=== PATIENT | male | born 1940 | race Caucasian/White ===

== ENCOUNTER 2017-12-11 10:15 | Day surgery (SDC) | payer MEDICARE, BC ==
[2017-12-11] MEDS ORDERED: METF500T PO (11:31)
[2017-12-11] MEDS ORDERED: DILT300C34 PO (11:33)
[2017-12-11] MEDS ORDERED: ATOR40TA PO (11:33)
[2017-12-11] MEDS ORDERED: OCUVITE PO (11:34)
[2017-12-11] MEDS ORDERED: MULT-38 PO (11:34)
[2017-12-11] MEDS ORDERED: OMEP40CA37 PO (11:34)
[2017-12-11] MEDS ORDERED: ASPI-1265 PO (11:35)
[2017-12-11] MEDS ORDERED: UBID50TA3 PO (11:35)
== END 2017-12-11 11:19 | disposition home or self-care (01) ==
LOC: WOUND CARE 10:15
PROVIDERS: ATTEND Surgery
DX: T81.31XA Disruption of external operation (surgical) wound, not elsewhere classified, initial encounter (principal); E11.622 Type 2 diabetes mellitus with other skin ulcer; L97.312 Non-pressure chronic ulcer of right ankle with fat layer exposed; E78.5 Hyperlipidemia, unspecified; I10 Essential (primary) hypertension; Z96.662 Presence of left artificial ankle joint; Z96.661 Presence of right artificial ankle joint; Y83.8 Other surgical procedures as the cause of abnormal reaction of the patient, or of later complication, without mention of misadventure at the time of the procedure
CPT/HCPCS: 11042; 36416; 82948; 99205; A6021; A6206; A6209; A6446

== ENCOUNTER 2017-12-15 10:14 | Day surgery (SDC) | payer MEDICARE, BC ==
[~2017-12-15 10:14] MED LIST: ASPI-1265 PO; ATOR40TA PO; DILT300C34 PO; METF500T PO; MULT-38 PO; OCUVITE PO; OMEP40CA37 PO; UBID50TA3 PO
[2017-12-15] MEDS ORDERED: LIDOcaine 2% 5ml jelly ONE (11:39)
== END 2017-12-15 12:31 | disposition home or self-care (01) ==
LOC: WOUND CARE 10:14
PROVIDERS: ATTEND Surgery
DX: T81.31XD Disruption of external operation (surgical) wound, not elsewhere classified, subsequent encounter (principal); E11.622 Type 2 diabetes mellitus with other skin ulcer; L97.312 Non-pressure chronic ulcer of right ankle with fat layer exposed; E78.5 Hyperlipidemia, unspecified; I10 Essential (primary) hypertension; Y83.8 Other surgical procedures as the cause of abnormal reaction of the patient, or of later complication, without mention of misadventure at the time of the procedure
CPT/HCPCS: 36416; 82948; A6209; A6222; A6446; C5271; Q4102

== ENCOUNTER 2017-12-24 08:07 | Day surgery (SDC) | payer MEDICARE, BC ==
[2017-12-24] MEDS ORDERED: LIDOcaine 2% 5ml jelly ONE (09:08)
== END 2017-12-24 09:44 | disposition home or self-care (01) ==
LOC: WOUND CARE 08:07
PROVIDERS: ATTEND Surgery
DX: T81.31XD Disruption of external operation (surgical) wound, not elsewhere classified, subsequent encounter (principal); E11.622 Type 2 diabetes mellitus with other skin ulcer; L97.312 Non-pressure chronic ulcer of right ankle with fat layer exposed; E78.5 Hyperlipidemia, unspecified; I10 Essential (primary) hypertension; Z96.662 Presence of left artificial ankle joint; Z96.661 Presence of right artificial ankle joint; Y83.8 Other surgical procedures as the cause of abnormal reaction of the patient, or of later complication, without mention of misadventure at the time of the procedure
CPT/HCPCS: 15271; 82948; A6209; A6446; Q4131; A6250

== ENCOUNTER 2017-12-30 08:09 | Day surgery (SDC) | payer MEDICARE, BC ==
[2017-12-30] MEDS ORDERED: LIDOcaine 2% 5ml jelly ONE (09:46)
== END 2017-12-30 11:01 | disposition home or self-care (01) ==
LOC: WOUND CARE 08:09
PROVIDERS: ATTEND Surgery
DX: T81.31XD Disruption of external operation (surgical) wound, not elsewhere classified, subsequent encounter (principal); E11.622 Type 2 diabetes mellitus with other skin ulcer; L97.312 Non-pressure chronic ulcer of right ankle with fat layer exposed; E78.5 Hyperlipidemia, unspecified; I10 Essential (primary) hypertension; Z96.662 Presence of left artificial ankle joint; Z96.661 Presence of right artificial ankle joint; Y83.8 Other surgical procedures as the cause of abnormal reaction of the patient, or of later complication, without mention of misadventure at the time of the procedure
CPT/HCPCS: 15271; 36416; 82948; A6209; A6222; Q4133; A6250

== ENCOUNTER 2018-01-06 08:17 | Day surgery (SDC) | payer MEDICARE, BC ==
[2018-01-06] MEDS ORDERED: LIDOcaine 2% 5ml jelly ONE (09:20)
== END 2018-01-06 10:10 | disposition home or self-care (01) ==
LOC: WOUND CARE 08:17
PROVIDERS: ATTEND Surgery
DX: T81.31XD Disruption of external operation (surgical) wound, not elsewhere classified, subsequent encounter (principal); E11.622 Type 2 diabetes mellitus with other skin ulcer; L97.312 Non-pressure chronic ulcer of right ankle with fat layer exposed; E78.5 Hyperlipidemia, unspecified; I10 Essential (primary) hypertension; Z96.662 Presence of left artificial ankle joint; Z96.661 Presence of right artificial ankle joint; Y83.8 Other surgical procedures as the cause of abnormal reaction of the patient, or of later complication, without mention of misadventure at the time of the procedure
CPT/HCPCS: 11043; 36416; 82948; A6021; A6206; A6209; A6446

== ENCOUNTER 2018-01-13 08:15 | Day surgery (SDC) | payer MEDICARE, BC ==
[2018-01-13] MEDS ORDERED: LIDOcaine 2% 5ml jelly ONE (09:57)
== END 2018-01-13 10:42 | disposition home or self-care (01) ==
LOC: WOUND CARE 08:15
PROVIDERS: ATTEND Surgery
DX: T81.31XD Disruption of external operation (surgical) wound, not elsewhere classified, subsequent encounter (principal); E11.622 Type 2 diabetes mellitus with other skin ulcer; L97.312 Non-pressure chronic ulcer of right ankle with fat layer exposed; E78.5 Hyperlipidemia, unspecified; I10 Essential (primary) hypertension; Z96.662 Presence of left artificial ankle joint; Z96.661 Presence of right artificial ankle joint; Y83.8 Other surgical procedures as the cause of abnormal reaction of the patient, or of later complication, without mention of misadventure at the time of the procedure
CPT/HCPCS: 15271; 36416; 82948; A6209; A6222; Q4131; A6250

== ENCOUNTER 2018-01-20 08:28 | Outpatient (CLI) | payer MEDICARE, BC ==
[2018-01-20] MEDS: LIDOcaine 2% 5ml jelly ONE (09:50)
== END 2018-01-20 10:40 | disposition home or self-care (01) ==
LOC: WOUND CARE 08:28 → EDSTATUS 08:30 → WOUND CARE 10:40
PROVIDERS: ATTEND Surgery
DX: T81.31XD Disruption of external operation (surgical) wound, not elsewhere classified, subsequent encounter (principal); E11.622 Type 2 diabetes mellitus with other skin ulcer; L97.312 Non-pressure chronic ulcer of right ankle with fat layer exposed; E78.5 Hyperlipidemia, unspecified; I10 Essential (primary) hypertension; Z96.662 Presence of left artificial ankle joint; Z96.661 Presence of right artificial ankle joint; Y83.8 Other surgical procedures as the cause of abnormal reaction of the patient, or of later complication, without mention of misadventure at the time of the procedure
CPT/HCPCS: 36416; 82948; 99214; A6206; A6209; A6446

== ENCOUNTER 2018-01-27 08:30 | Day surgery (SDC) | payer MEDICARE, BC ==
[2018-01-27] MEDS ORDERED: LIDOcaine 2% 5ml jelly ONE (09:37)
== END 2018-01-27 10:20 | disposition home or self-care (01) ==
LOC: WOUND CARE 08:30
PROVIDERS: ATTEND Surgery
DX: E11.622 Type 2 diabetes mellitus with other skin ulcer (principal); L97.312 Non-pressure chronic ulcer of right ankle with fat layer exposed
CPT/HCPCS: 15271; A6209; A6446; Q4131; A6250

== ENCOUNTER 2018-02-03 08:41 | Day surgery (SDC) | payer MEDICARE, BC ==
[2018-02-03] MEDS ORDERED: LIDOcaine 2% 5ml jelly ONE (09:07)
== END 2018-02-03 09:30 | disposition home or self-care (01) ==
LOC: WOUND CARE 08:41
PROVIDERS: ATTEND Surgery
DX: T81.31XD Disruption of external operation (surgical) wound, not elsewhere classified, subsequent encounter (principal); E11.622 Type 2 diabetes mellitus with other skin ulcer; L97.312 Non-pressure chronic ulcer of right ankle with fat layer exposed; E78.5 Hyperlipidemia, unspecified; I10 Essential (primary) hypertension; Z96.662 Presence of left artificial ankle joint; Z96.661 Presence of right artificial ankle joint; Y83.8 Other surgical procedures as the cause of abnormal reaction of the patient, or of later complication, without mention of misadventure at the time of the procedure
CPT/HCPCS: 82948; 99215; A6209; A6222; A6446

== ENCOUNTER 2018-02-10 08:15 | Day surgery (SDC) | payer MEDICARE, BC ==
[2018-02-10] MEDS ORDERED: LIDOcaine/PRILOcaine 5gm cream TP ONE (09:33)
== END 2018-02-10 10:10 | disposition home or self-care (01) ==
LOC: WOUND CARE 08:15
PROVIDERS: ATTEND Surgery
DX: T81.31XD Disruption of external operation (surgical) wound, not elsewhere classified, subsequent encounter (principal); E11.622 Type 2 diabetes mellitus with other skin ulcer; L97.312 Non-pressure chronic ulcer of right ankle with fat layer exposed; E78.5 Hyperlipidemia, unspecified; I10 Essential (primary) hypertension; Z96.662 Presence of left artificial ankle joint; Z96.661 Presence of right artificial ankle joint; Y83.8 Other surgical procedures as the cause of abnormal reaction of the patient, or of later complication, without mention of misadventure at the time of the procedure
CPT/HCPCS: 15271; 36416; 82948; A6209; A6222; A6446; Q4131; A6250

== ENCOUNTER 2018-02-24 08:20 | Day surgery (SDC) | payer MEDICARE, BC | END 2018-02-24 10:03 | disposition home or self-care (01) | LOC: WOUND CARE 08:20 | PROVIDERS: ATTEND Surgery | DX: T81.31XD Disruption of external operation (surgical) wound, not elsewhere classified, subsequent encounter (principal); E11.622 Type 2 diabetes mellitus with other skin ulcer; L97.312 Non-pressure chronic ulcer of right ankle with fat layer exposed; E78.5 Hyperlipidemia, unspecified; I10 Essential (primary) hypertension; Z96.662 Presence of left artificial ankle joint; Z96.661 Presence of right artificial ankle joint; Y83.8 Other surgical procedures as the cause of abnormal reaction of the patient, or of later complication, without mention of misadventure at the time of the procedure | CPT/HCPCS: 15271; 36416; 82948; A6209; A6222; A6446; Q4131; A6250 ==

== ENCOUNTER 2018-03-03 08:00 | Outpatient (CLI) | payer MEDICARE, BC ==
[2018-03-03] MEDS ORDERED: LIDOcaine/PRILOcaine 5gm cream TP ONE (09:24)
== END 2018-03-03 09:50 | disposition home or self-care (01) ==
LOC: WOUND CARE 08:00 → EDSTATUS 08:30 → WOUND CARE 09:50
PROVIDERS: ATTEND Surgery
DX: T81.31XD Disruption of external operation (surgical) wound, not elsewhere classified, subsequent encounter (principal); E11.622 Type 2 diabetes mellitus with other skin ulcer; L97.312 Non-pressure chronic ulcer of right ankle with fat layer exposed; E78.5 Hyperlipidemia, unspecified; I10 Essential (primary) hypertension; Z96.662 Presence of left artificial ankle joint; Z96.661 Presence of right artificial ankle joint; Y83.8 Other surgical procedures as the cause of abnormal reaction of the patient, or of later complication, without mention of misadventure at the time of the procedure
CPT/HCPCS: 36416; 82948; 99215; A6206; A6209; A6212

== ENCOUNTER 2018-03-08 08:05 | Day surgery (SDC) | payer MEDICARE, BC ==
[2018-03-08] MEDS ORDERED: LIDOcaine/PRILOcaine 5gm cream TP ONE (09:42)
== END 2018-03-08 10:22 | disposition home or self-care (01) ==
LOC: WOUND CARE 08:05
PROVIDERS: ATTEND Surgery
DX: T81.31XD Disruption of external operation (surgical) wound, not elsewhere classified, subsequent encounter (principal); E11.622 Type 2 diabetes mellitus with other skin ulcer; L97.312 Non-pressure chronic ulcer of right ankle with fat layer exposed; E78.5 Hyperlipidemia, unspecified; I10 Essential (primary) hypertension; Z96.662 Presence of left artificial ankle joint; Z96.661 Presence of right artificial ankle joint; Y83.8 Other surgical procedures as the cause of abnormal reaction of the patient, or of later complication, without mention of misadventure at the time of the procedure
CPT/HCPCS: 15271; 36416; 82948; A6209; A6222; A6446; Q4131; A6250

== ENCOUNTER 2018-03-17 08:05 | Outpatient (CLI) | payer MEDICARE, BC ==
[2018-03-17] MEDS ORDERED: LIDOcaine/PRILOcaine 5gm cream TP ONE (09:38)
== END 2018-03-17 10:12 | disposition home or self-care (01) ==
LOC: WOUND CARE 08:05
PROVIDERS: ATTEND Surgery
DX: T81.31XD Disruption of external operation (surgical) wound, not elsewhere classified, subsequent encounter (principal); E11.622 Type 2 diabetes mellitus with other skin ulcer; L97.312 Non-pressure chronic ulcer of right ankle with fat layer exposed; E78.5 Hyperlipidemia, unspecified; I10 Essential (primary) hypertension; Z96.662 Presence of left artificial ankle joint; Z96.661 Presence of right artificial ankle joint; Y83.8 Other surgical procedures as the cause of abnormal reaction of the patient, or of later complication, without mention of misadventure at the time of the procedure
CPT/HCPCS: 36416; 82948; 99215; A6212; A6222

== ENCOUNTER 2018-03-24 09:39 | Day surgery (SDC) | payer MEDICARE, BC ==
[2018-03-24] MEDS ORDERED: LIDOcaine/PRILOcaine 5gm cream TP ONE (10:04)
== END 2018-03-24 10:54 | disposition home or self-care (01) ==
LOC: WOUND CARE 09:39
PROVIDERS: ATTEND Surgery
DX: T81.31XD Disruption of external operation (surgical) wound, not elsewhere classified, subsequent encounter (principal); E11.622 Type 2 diabetes mellitus with other skin ulcer; L97.312 Non-pressure chronic ulcer of right ankle with fat layer exposed; E78.5 Hyperlipidemia, unspecified; I10 Essential (primary) hypertension; Z96.662 Presence of left artificial ankle joint; Z96.661 Presence of right artificial ankle joint; Y83.8 Other surgical procedures as the cause of abnormal reaction of the patient, or of later complication, without mention of misadventure at the time of the procedure
CPT/HCPCS: 15271; 36416; 82948; A6209; A6222; Q4133; A6250

== ENCOUNTER 2018-03-31 09:42 | Day surgery (SDC) | payer MEDICARE, BC ==
[2018-03-31] MEDS ORDERED: LIDOcaine/PRILOcaine 5gm cream TP ONE (10:02)
== END 2018-03-31 10:28 | disposition home or self-care (01) ==
LOC: WOUND CARE 09:42
PROVIDERS: ATTEND Surgery
DX: T81.31XD Disruption of external operation (surgical) wound, not elsewhere classified, subsequent encounter (principal); E11.622 Type 2 diabetes mellitus with other skin ulcer; L97.312 Non-pressure chronic ulcer of right ankle with fat layer exposed; E78.5 Hyperlipidemia, unspecified; I10 Essential (primary) hypertension; Z96.662 Presence of left artificial ankle joint; Z96.661 Presence of right artificial ankle joint; Y83.8 Other surgical procedures as the cause of abnormal reaction of the patient, or of later complication, without mention of misadventure at the time of the procedure
CPT/HCPCS: 15271; 36416; 82948; A6209; A6212; A6222; Q4133; A6250

== ENCOUNTER 2018-04-07 09:28 | Day surgery (SDC) | payer MEDICARE, BC ==
[2018-04-07] MEDS ORDERED: LIDOcaine/PRILOcaine 5gm cream TP ONE (09:53)
== END 2018-04-07 11:00 | disposition home or self-care (01) ==
LOC: WOUND CARE 09:28
PROVIDERS: ATTEND Surgery
DX: T81.31XD Disruption of external operation (surgical) wound, not elsewhere classified, subsequent encounter (principal); E11.622 Type 2 diabetes mellitus with other skin ulcer; L97.312 Non-pressure chronic ulcer of right ankle with fat layer exposed; E78.5 Hyperlipidemia, unspecified; I10 Essential (primary) hypertension; Z96.662 Presence of left artificial ankle joint; Z96.661 Presence of right artificial ankle joint; Y83.8 Other surgical procedures as the cause of abnormal reaction of the patient, or of later complication, without mention of misadventure at the time of the procedure
CPT/HCPCS: 15271; 36416; 82948; A6209; A6222; A6446; A6449; Q4133; A6250

== ENCOUNTER 2018-04-22 09:47 | Day surgery (SDC) | payer MEDICARE, BC ==
[2018-04-22] MEDS ORDERED: LIDOcaine/PRILOcaine 5gm cream TP ONE (10:23)
== END 2018-04-22 11:13 | disposition home or self-care (01) ==
LOC: WOUND CARE 09:47
PROVIDERS: ATTEND Surgery
DX: T81.31XD Disruption of external operation (surgical) wound, not elsewhere classified, subsequent encounter (principal); E11.622 Type 2 diabetes mellitus with other skin ulcer; L97.312 Non-pressure chronic ulcer of right ankle with fat layer exposed; E78.5 Hyperlipidemia, unspecified; I10 Essential (primary) hypertension; Z96.662 Presence of left artificial ankle joint; Z96.661 Presence of right artificial ankle joint; Y83.8 Other surgical procedures as the cause of abnormal reaction of the patient, or of later complication, without mention of misadventure at the time of the procedure
CPT/HCPCS: 15271; 36416; 82948; A6209; A6222; Q4133; A6250

== ENCOUNTER 2018-04-28 09:17 | Outpatient (CLI) | payer MEDICARE, BC ==
[2018-04-28] MEDS ORDERED: LIDOcaine/PRILOcaine 5gm cream TP ONE (09:44)
== END 2018-04-28 10:48 | disposition home or self-care (01) ==
LOC: WOUND CARE 09:17 → EDSTATUS 10:00 → WOUND CARE 10:48
PROVIDERS: ATTEND Surgery
DX: T81.31XD Disruption of external operation (surgical) wound, not elsewhere classified, subsequent encounter (principal); E11.622 Type 2 diabetes mellitus with other skin ulcer; L97.312 Non-pressure chronic ulcer of right ankle with fat layer exposed; E78.5 Hyperlipidemia, unspecified; I10 Essential (primary) hypertension; Z96.662 Presence of left artificial ankle joint; Z96.661 Presence of right artificial ankle joint; Y83.8 Other surgical procedures as the cause of abnormal reaction of the patient, or of later complication, without mention of misadventure at the time of the procedure
CPT/HCPCS: 82948; 99215; A6021; A6206; A6212

== ENCOUNTER 2018-05-04 09:38 | Day surgery (SDC) | payer MEDICARE, BC ==
[2018-05-04] MEDS ORDERED: LIDOcaine/PRILOcaine 5gm cream TP ONE (10:12)
== END 2018-05-04 10:48 | disposition home or self-care (01) ==
LOC: WOUND CARE 09:38
PROVIDERS: ATTEND Surgery
DX: T81.31XD Disruption of external operation (surgical) wound, not elsewhere classified, subsequent encounter (principal); E11.622 Type 2 diabetes mellitus with other skin ulcer; L97.512 Non-pressure chronic ulcer of other part of right foot with fat layer exposed; E78.5 Hyperlipidemia, unspecified; I10 Essential (primary) hypertension; Z96.662 Presence of left artificial ankle joint; Z96.661 Presence of right artificial ankle joint; Y83.8 Other surgical procedures as the cause of abnormal reaction of the patient, or of later complication, without mention of misadventure at the time of the procedure
CPT/HCPCS: 15275; 36416; 82948; A6209; A6222; Q4133; A6250

== ENCOUNTER 2018-05-12 09:20 | Outpatient (CLI) | payer MEDICARE, BC ==
[2018-05-12] MEDS ORDERED: LIDOcaine/PRILOcaine 5gm cream TP ONE (10:39)
== END 2018-05-12 11:50 | disposition home or self-care (01) ==
LOC: WOUND CARE 09:20 → EDSTATUS 10:00 → WOUND CARE 11:50
PROVIDERS: ATTEND Surgery
DX: T81.31XD Disruption of external operation (surgical) wound, not elsewhere classified, subsequent encounter (principal); E11.622 Type 2 diabetes mellitus with other skin ulcer; L97.512 Non-pressure chronic ulcer of other part of right foot with fat layer exposed; E78.5 Hyperlipidemia, unspecified; I10 Essential (primary) hypertension; Z96.662 Presence of left artificial ankle joint; Z96.661 Presence of right artificial ankle joint; Y83.8 Other surgical procedures as the cause of abnormal reaction of the patient, or of later complication, without mention of misadventure at the time of the procedure
CPT/HCPCS: 36416; 82948; 99214; A6206; A6212

== ENCOUNTER 2018-05-19 09:50 | Day surgery (SDC) | payer MEDICARE, BC ==
[2018-05-19] MEDS ORDERED: LIDOcaine/PRILOcaine 5gm cream TP ONE (11:40)
== END 2018-05-19 12:00 | disposition home or self-care (01) ==
LOC: WOUND CARE 09:50
PROVIDERS: ATTEND Surgery
DX: T81.31XD Disruption of external operation (surgical) wound, not elsewhere classified, subsequent encounter (principal); E11.621 Type 2 diabetes mellitus with foot ulcer; L97.512 Non-pressure chronic ulcer of other part of right foot with fat layer exposed; E78.5 Hyperlipidemia, unspecified; I10 Essential (primary) hypertension; Z96.662 Presence of left artificial ankle joint; Z96.661 Presence of right artificial ankle joint; Y83.8 Other surgical procedures as the cause of abnormal reaction of the patient, or of later complication, without mention of misadventure at the time of the procedure
CPT/HCPCS: 36416; 82948; 97597; A6222; A6021; A6212

== ENCOUNTER 2018-06-09 10:45 | Day surgery (SDC) | payer MEDICARE, BC | END 2018-06-09 11:45 | disposition home or self-care (01) | LOC: WOUND CARE 10:45 | PROVIDERS: ATTEND Surgery | DX: T81.31XD Disruption of external operation (surgical) wound, not elsewhere classified, subsequent encounter (principal); E11.621 Type 2 diabetes mellitus with foot ulcer; L97.512 Non-pressure chronic ulcer of other part of right foot with fat layer exposed; E78.5 Hyperlipidemia, unspecified; I10 Essential (primary) hypertension; Z96.662 Presence of left artificial ankle joint; Z96.661 Presence of right artificial ankle joint; Y83.8 Other surgical procedures as the cause of abnormal reaction of the patient, or of later complication, without mention of misadventure at the time of the procedure | CPT/HCPCS: 97597; A6021; A6206; A6212 ==

== ENCOUNTER 2018-06-23 09:00 | Outpatient (CLI) | payer MEDICARE, BC ==
--- NOTE | 2018-06-23 10:15 | NUR ---
Patient ambulated independently from [facility] and was admitted to outpatient wound care for physician visit with Rolo Rincon MD. Dressing removed, wound cleansed. Patient assessed for changes in conditions, medications and medical history. 0912 - blood glucose 101. Patient instructed that elevated blood sugars delay healing of the wound and can cause further complications including but not limited to amputation of toes or feet. 1000 - Dr. Rincon at bedside accompanied by RN. Wound assessed by MD and is declared healed. Plan of care discussed with patient. Dressings placed per MD orders. Patient is discharged from the wound clinic to follow up on an as needed basis. Patient instructed on the signs and symptoms of infection and to call the Wound Center if any occur or to go to the ED if we are closed: Increased pain in wound Increase in drainage from the wound Redness in the skin surrounding the wound Bleeding from the wound Temperature of 101 or greater Patient instructed that the weight of their body puts a large amount of pressure on their wounds. This pressure keeps the new tissue from growing and inhibits new blood vessels from forming. Explained that, if they continue to bear weight on a body part that has a wound, the time it takes to heal the wound increases, the wound may get worse or the wound may not heal at all. Patient verbalized understanding of all discharge instructions and plan of care and ambulated independently out to [facility] in stable condition with no sign or symptom of distress at time of discharge.
== END 2018-06-23 10:10 | disposition home or self-care (01) ==
LOC: EDSTATUS 09:00 → WOUND CARE 09:00
PROVIDERS: ATTEND Surgery
DX: T81.89XD Other complications of procedures, not elsewhere classified, subsequent encounter (principal); E11.621 Type 2 diabetes mellitus with foot ulcer; L97.512 Non-pressure chronic ulcer of other part of right foot with fat layer exposed; E78.5 Hyperlipidemia, unspecified; I10 Essential (primary) hypertension; Z96.662 Presence of left artificial ankle joint; Z96.661 Presence of right artificial ankle joint; Y83.8 Other surgical procedures as the cause of abnormal reaction of the patient, or of later complication, without mention of misadventure at the time of the procedure
CPT/HCPCS: 36416; 82948; G0463; A4414

== ENCOUNTER 2019-10-17 07:38 | Day surgery (SDC) | payer MEDICARE, BC ==
[2019-10-17] VITALS (8 sets, daily range): BP systolic 130–168; BP diastolic 45–62
[~2019-10-17] VITALS: Ht 170.2 cm; Wt 93.4 kg
[~2019-10-17 07:38] MED LIST changes: +OMEP40CA13 PO; -OMEP40CA37 PO
[2019-10-17] MEDS ORDERED: normal saline 1,000 ML IV SCH (08:00)
[2019-10-17] MEDS ORDERED: diphenhydrAMINE 25mg capsule PO PRN (08:00)
[2019-10-17] MEDS ORDERED: LOSA50TA64 PO (08:08)
[2019-10-17] MEDS ORDERED: FLO0.4C PO (08:08)
[2019-10-17 08:35] LABS: BASOPHILS % (AUTO) 0.5 % (0-1); EOSINOPHILS # (AUTO) 0.5 X10'3 (0-0.9); EOSINOPHILS % (AUTO) 6.4 % (0-6); HEMATOCRIT 39.6 % (42.0-52.0); HEMOGLOBIN 13.4 g/dl (14.0-17.9); LYMPHOCYTES # (AUTO) 1.1 X10'3 (1.1-4.8); LYMPHOCYTES % (AUTO) 15.1 % (21-51); MEAN CORPUSCULAR HEMOGLOBIN 32.1 PG (27.0-31.0); MEAN CORPUSCULAR HGB CONC 33.9 g/dL (33.0-36.5); MEAN CORPUSCULAR VOLUME 94.9 FL (78-98); MONOCYTES # (AUTO) 0.5 X10'3 (0-0.9); MONOCYTES % (AUTO) 7.7 % (2-12); NEUTROPHILS % (AUTO) 70.3 % (42-75); PLATELET COUNT 176 X10'3 (140-440); RED BLOOD COUNT 4.17 X10'6 (4.70-6.10); RED CELL DISTRIBUTION WIDTH 13.5 % (11.5-14.5); WHITE BLOOD COUNT 7.2 X10'3 (4.5-11.0)
[2019-10-17] MEDS ORDERED: proCHLORperazine 10 MG/2 ml inj ONE (09:12)
[2019-10-17] MEDS ORDERED: midazolam 2 mg/2 ml injection ONE ×2 (09:13→09:45)
[2019-10-17] MEDS ORDERED: iohexol 350 MG/ML 50ML vial IV ONE (09:13)
[2019-10-17] MEDS ORDERED: fentaNYL/PF 50MCG/1 ML 2ML syringe ONE (09:13)
[2019-10-17] MEDS ORDERED: LIDOcaine 1% (10mg/ml)w/preservative injection 20ml MDV ONE (09:13)
[2019-10-17] MEDS ORDERED: iohexol 350MG/ML 100ml bottle IV ONE ×2 (09:13→10:00)
[2019-10-17 09:19] LABS: ANION GAP 7 (8-16); BLOOD UREA NITROGEN 25 MG/DL (7-18); BUN/CREATININE RATIO 20.7 (5.4-32.0); CALCIUM 8.9 MG/DL (8.5-10.1); CHLORIDE 106 MMOL/L (99-107); CREATININE 1.21 MG/DL (0.60-1.10); GLUCOSE 118 MG/DL (70-104); POTASSIUM 4.6 MMOL/L (3.5-5.1); SODIUM 141 MMOL/L (135-145); TOTAL CARBON DIOXIDE 27.7 MMOL/L (24-32); eGFR 58 ML/MIN
[2019-10-17] MEDS ORDERED: heparin 1,000unit/ml 10ml vial 10 ML ONE (09:49)
[2019-10-17] MEDS ORDERED: clopidogrel 300mg tablet ONE (10:04)
--- NOTE | 2019-10-17 10:45 | NUR ---
pt voided 250ml clear, yellow
[2019-10-17] MEDS ORDERED: acetaminophen 325mg tablet PO PRN (10:55)
[2019-10-17] MEDS ORDERED: ondansetron/PF 4mg/2ml inj IV PRN (10:55)
[2019-10-17] MEDS ORDERED: proCHLORperazine 10 MG/2 ml inj IV PRN (10:55)
[2019-10-17] MEDS ORDERED: HYDROcodone/acetaminophen 5mg/325mg tablet PO PRN (10:55)
[2019-10-17] MEDS ORDERED: HYDROcodone/acetaminophen 10/325mg tab PO PRN (10:55)
--- NOTE | 2019-10-17 11:12 | NUR ---
contacted pts , she will be here at 1330. I will contact her if anything changes. pt agreed.
--- NOTE | 2019-10-17 11:17 | NUR ---
pt ate 100% of breakfast tray.
--- NOTE | 2019-10-17 11:44 | NUR ---
pt voided 350ml clear, yellow
[2019-10-17] MEDS ORDERED: furosemide 40mg/4ml inj IV ONE (12:00)
== END 2019-10-17 13:35 | disposition home or self-care (01) ==
LOC: SSTAY O 07:38 → MED 3N 07:43 → SSTAY O 13:35
PROVIDERS: ATTEND Internal Medicine Cardiovascular Disease
DX: R94.39 Abnormal result of other cardiovascular function study (principal); I25.10 Atherosclerotic heart disease of native coronary artery without angina pectoris; N40.0 Benign prostatic hyperplasia without lower urinary tract symptoms; I10 Essential (primary) hypertension; E11.9 Type 2 diabetes mellitus without complications; M19.90 Unspecified osteoarthritis, unspecified site; Z87.891 Personal history of nicotine dependence; Z79.899 Other long term (current) drug therapy; Z98.890 Other specified postprocedural states; Z96.652 Presence of left artificial knee joint; Z96.661 Presence of right artificial ankle joint; Z88.8 Allergy status to other drugs, medicaments and biological substances; Z95.5 Presence of coronary angioplasty implant and graft; Z82.3 Family history of stroke; Z80.0 Family history of malignant neoplasm of digestive organs
CPT/HCPCS: 36415; 80048; 82948; 83735; 85025; 85610; 93005; 93458; 99152; 99153; C1725; C1769; C1874; C1894; C9600; J0780; J1644; J1940; J2001; J2250; J3010; J7030; Q0163; Q9967; A4620; A6258; C1751; C1760

== ENCOUNTER 2020-12-03 06:38 | Day surgery (SDC) | payer MEDICARE, BC ==
[2020-12-03] VITALS (8 sets, daily range): BP systolic 126–153; BP diastolic 51–88
[~2020-12-03] VITALS: Ht 170.2 cm; Wt 95.4 kg
[~2020-12-03 06:38] MED LIST changes: +FLO0.4C PO; +LOSA50TA64 PO; -MULT-38 PO; -OCUVITE PO; -OMEP40CA13 PO; -UBID50TA3 PO
[2020-12-03] MEDS ORDERED: cefazolin/dext.iso 2gm/100ml 100 ML IV ONE (07:05)
[2020-12-03] MEDS ORDERED: VANCOMYCIN 1,500MG inj. 1,500 MG in normal saline 500ml IV soln 300 ML IV ONE (07:05)
[2020-12-03] MEDS ORDERED: CLOP75TA34 PO (07:11)
[2020-12-03] MEDS ORDERED: HYDR12.55 PO (07:11)
[2020-12-03] MEDS ORDERED: UBID300C PO (07:14)
[2020-12-03] MEDS ORDERED: TEN1T PO (07:14)
[2020-12-03] MEDS ORDERED: occuvite PO (07:14)
[2020-12-03 08:16] LABS: BASOPHILS % (AUTO) 0.7 % (0-1); EOSINOPHILS # (AUTO) 0.3 X10'3 (0-0.9); EOSINOPHILS % (AUTO) 5.4 % (0-6); HEMATOCRIT 35.2 % (42.0-52.0); HEMOGLOBIN 12.1 g/dl (14.0-17.9); LYMPHOCYTES # (AUTO) 0.9 X10'3 (1.1-4.8); LYMPHOCYTES % (AUTO) 17.5 % (21-51); MEAN CORPUSCULAR HEMOGLOBIN 33.2 PG (27.0-31.0); MEAN CORPUSCULAR HGB CONC 34.5 g/dL (33.0-36.5); MEAN CORPUSCULAR VOLUME 96.4 FL (78-98); MEAN PLATELET VOLUME 8.1 FL (7.4-10.4); MONOCYTES # (AUTO) 0.4 X10'3 (0-0.9); MONOCYTES % (AUTO) 8.4 % (2-12); NEUTROPHILS # (AUTO) 3.6 X10'3 (1.8-7.7); PLATELET COUNT 147 X10'3 (140-440); RED BLOOD COUNT 3.65 X10'6 (4.70-6.10); RED CELL DISTRIBUTION WIDTH 13.7 % (11.5-14.5); WHITE BLOOD COUNT 5.3 X10'3 (4.5-11.0)
[2020-12-03 08:25] LABS: ALBUMIN 3.4 G/DL (3.4-5.0); ANION GAP 9 (8-16); BLOOD UREA NITROGEN 27 MG/DL (7-18); BUN/CREATININE RATIO 23.3 (5.4-32.0); CALCIUM 7.8 MG/DL (8.5-10.1); CHLORIDE 108 MMOL/L (99-107); CREATININE 1.16 MG/DL (0.60-1.10); GLUCOSE 108 MG/DL (70-104); MAGNESIUM 2.1 MG/DL (1.5-2.4); POTASSIUM 4.7 MMOL/L (3.5-5.1); SODIUM 142 MMOL/L (135-145); TOTAL CARBON DIOXIDE 25.4 MMOL/L (24-32); eGFR 61 ML/MIN
[2020-12-03] MEDS ORDERED: midazolam 1 mg/ML 2ml injection ONE ×2 (08:55→09:26)
[2020-12-03] MEDS ORDERED: fentaNYL/PF 50MCG/1 ML 2ML syringe ONE (08:55)
[2020-12-03] MEDS ORDERED: LIDOCAINE 2% w/EPI 1:100:000 30mL injection MDV**cath lab 1 only ONE (08:55)
[2020-12-03] MEDS ORDERED: vancomycin 1,000mg inj ONE (09:23)
[2020-12-03] MEDS ORDERED: HYDROcodone/acetaminophen 10/325mg tab PO PRN (10:30)
[2020-12-03] MEDS ORDERED: normal saline 1000ml 1,000 ML IV SCH (10:30)
[2020-12-03] MEDS ORDERED: HYDROcodone/acetaminophen 5mg/325mg tablet PO PRN (10:30)
== END 2020-12-03 12:45 | disposition home or self-care (01) ==
LOC: SSTAY O 06:38
PROVIDERS: ATTEND Internal Medicine Cardiovascular Disease
DX: I49.5 Sick sinus syndrome (principal); I25.10 Atherosclerotic heart disease of native coronary artery without angina pectoris; E11.9 Type 2 diabetes mellitus without complications; I10 Essential (primary) hypertension; N40.0 Benign prostatic hyperplasia without lower urinary tract symptoms; M19.90 Unspecified osteoarthritis, unspecified site; Z95.5 Presence of coronary angioplasty implant and graft; Z79.899 Other long term (current) drug therapy; Z79.82 Long term (current) use of aspirin; Z96.653 Presence of artificial knee joint, bilateral; Z79.01 Long term (current) use of anticoagulants; Z98.890 Other specified postprocedural states; Z87.891 Personal history of nicotine dependence; Z88.8 Allergy status to other drugs, medicaments and biological substances; Z82.3 Family history of stroke; Z80.0 Family history of malignant neoplasm of digestive organs
CPT/HCPCS: 33208; 36415; 71045; 80048; 82948; 83735; 85025; 85610; 93005; 99152; 99153; C1785; C1894; C1898; J2250; J3010; J3370; A4620; A6258